=== PATIENT | male | born 1940 | race Caucasian/White ===

== ENCOUNTER → 2020-09-15 | Outpatient (CLI) | payer MEDICARE ==
[~2020-09-15] MED LIST: OMNIPAQUE 350 MG/ML, 150 ML BOTTLE ONE
== END | disposition home or self-care (01) ==
LOC: CFH 09:26
PROVIDERS: ATTEND Internal Medicine Cardiovascular Disease
DX: I48.91 Unspecified atrial fibrillation (principal); J98.4 Other disorders of lung; Z20.828 Contact with and (suspected) exposure to other viral communicable diseases
CPT/HCPCS: 71046; 75572; 87635; Q9967

== ENCOUNTER 2020-09-21 06:08 | Observation (INO) | payer MEDICARE ==
[~2020-09-21] VITALS: Ht 177.8 cm; Wt 101.3 kg
[2020-09-21 06:41] VITALS: BP 147/86
[2020-09-21] MEDS ORDERED: SODIUM CHLORIDE 0.9% 1,000 ML IV SCH (07:00)
[2020-09-21] MEDS ORDERED: SODIUM CHLORIDE 0.9% 1,000 ML IV ONE (07:00)
[2020-09-21] MEDS ORDERED: ALLO300T PO (07:05)
[2020-09-21] MEDS ORDERED: CHOL200052 PO (07:05)
[2020-09-21] MEDS ORDERED: MAGN250T8 PO (07:05)
[2020-09-21] MEDS ORDERED: GABA600T7 PO (07:05)
[2020-09-21] MEDS ORDERED: TAMS-11 PO (07:05)
[2020-09-21] MEDS ORDERED: INDO50CA15 PO (07:05)
[2020-09-21] MEDS ORDERED: HYDR30CR TP (07:05)
[2020-09-21] MEDS ORDERED: TRAM100T33 PO (07:05)
[2020-09-21] MEDS ORDERED: CYAN-10 PO (07:05)
[2020-09-21] MEDS ORDERED: LISI5TAB7 PO (07:05)
[2020-09-21] MEDS ORDERED: LEVO50TA5 PO (07:05)
[2020-09-21] MEDS ORDERED: ATOR40TA PO (07:05)
[2020-09-21] MEDS ORDERED: DRON400T PO (07:05)
[2020-09-21] MEDS ORDERED: FINA5TAB4 PO (07:05)
[2020-09-21] MEDS ORDERED: WARF-36 PO (07:05)
[2020-09-21 07:12] LABS: INTERNATIONAL NORMALIZED RATIO 1.61 (0.93-1.1)
[2020-09-21 07:55] LABS: ANION GAP 7 mmol/L (5-15); CALCIUM 8.8 mg/dL (8.5-10.1); CHLORIDE 112 mmol/L (98-107); CREATININE 1.16 mg/dL (0.7-1.3)
[2020-09-21 08:04] LABS: BASOPHILS % (AUTO) 1 % (0-1); EOSINOPHILS % (AUTO) 3 % (1-7); LYMPHOCYTES % (AUTO) 24 % (22-44); MEAN CORPUSCULAR HGB CONC 33.6 g/dL (33.2-36.2); MEAN PLATELET VOLUME 8.7 fL (7.4-10.4); MONOCYTES % (AUTO) 11 % (2-9); NEUTROPHILS % (AUTO) 62 % (42-75); PLATELET COUNT 225 x10^3/uL (130-400); RED BLOOD COUNT 4.33 x10^6/uL (4.38-5.82); RED CELL DISTRIBUTION WIDTH 13.9 % (9.4-14.8)
[2020-09-21 08:10] LABS: MD NO
[2020-09-21] MEDS ORDERED: FENTANYL PF 100 MCG/2ML ONE ×2 (08:13→12:42)
[2020-09-21] MEDS ORDERED: LIDOCAINE 2%, 20ML ONE (08:19)
[2020-09-21] MEDS ORDERED: PHENYLEPHRINE 10 MG/ML ONE (08:29)
[2020-09-21] MEDS ORDERED: DEXAMETHASONE 4 MG/ML, 5ML ONE (08:29)
[2020-09-21] MEDS ORDERED: hydrALAzine 20 MG/ML, 1ML IV PRN (08:30)
[2020-09-21] MEDS ORDERED: EPHEDRINE 50 MG/ML, 1ML IVPush PRN (08:30)
[2020-09-21] MEDS ORDERED: ONDANSETRON 2MG/ML, 2ML IVPush PRN (08:30)
[2020-09-21] MEDS ORDERED: LABETALOL 5MG/ML, 20ML IV PRN (08:30)
[2020-09-21] MEDS ORDERED: OXYcodone 5 MG/5 ML ORAL.SOL UDC PO PRN (08:30)
[2020-09-21] MEDS ORDERED: HYDROmorphone 1 MG/ML, 1ML INJ IVPush PRN (08:30)
[2020-09-21] MEDS ORDERED: PROMETHAZINE 25 MG/ML, 1ML IVPush PRN (08:30)
[2020-09-21] MEDS ORDERED: ACETAMINOPHEN 325 MG TABLET PO PRN ×2 (08:30→12:00)
[2020-09-21] MEDS ORDERED: FENTANYL PF 100 MCG/2ML IV PRN (08:30)
[2020-09-21] MEDS ORDERED: SUGAMMADEX 200 MG/2 ML IVPush ONE (09:04)
[2020-09-21] MEDS ORDERED: ONDANSETRON 2MG/ML, 2ML ONE (09:04)
[2020-09-21] MEDS ORDERED: SUCCINYLCHOLINE 20 MG/ML, 10ML ONE (09:04)
[2020-09-21] MEDS ORDERED: PROPOFOL 10 MG/ML, 20ML ONE (09:04)
[2020-09-21] MEDS ORDERED: ROCURONIUM 10MG/ML,5ML ONE ×2 (09:04→09:18)
[2020-09-21] MEDS ORDERED: LIDOCAINE-MPF 2% ,5ML ONE (09:04)
[2020-09-21] MEDS ORDERED: HEPARIN 1,000 UNITS/ML, 10ML ONE ×2 (09:18)
[2020-09-21 14:42] VITALS: BP 152/87
[2020-09-21] MEDS ORDERED: WARFARIN 7.5 MG TABLET PO-COUM ONE (18:00)
[2020-09-21 19:08] VITALS: BP 95/49
[2020-09-21] MEDS ORDERED: MELATONIN 5 MG TABLET PO PRN (20:30)
[2020-09-21] MEDS: COLCHICINE 0.6 MG CAPSULE PO SCH (20:42)
[2020-09-21] MEDS: INDOMETHACIN 50 MG CAPSULE PO SCH (20:42)
[2020-09-21] MEDS ORDERED: DRONEDARONE 400MG TABLET PO SCH (21:00)
[2020-09-21] MEDS: HYDROCORT TP SCH (21:00)
[2020-09-21] MEDS: PRAMOXINE TP SCH (21:00)
[2020-09-21] MEDS ORDERED: ATORVASTATIN 10 MG TABLET PO SCH (21:00)
[2020-09-22 01:44] VITALS: BP 119/73
[2020-09-22] MEDS ORDERED: LEVOTHYROXINE 50 MCG TABLET PO SCH (06:00)
[2020-09-22 07:06] LABS: INTERNATIONAL NORMALIZED RATIO 1.73 (0.93-1.1); PROTHROMBIN TIME 18.2 Seconds (9.6-11.5)
[2020-09-22 07:35] VITALS: BP 122/72
[2020-09-22] MEDS ORDERED: GABAPENTIN 300 MG CAPSULE PO SCH (09:00)
[2020-09-22] MEDS ORDERED: MAGNESIUM OXIDE 400 MG TABLET PO SCH (09:00)
[2020-09-22] MEDS: HYDROCORT TP SCH (09:00)
[2020-09-22] MEDS ORDERED: WARFARIN 5 MG TABLET PO-COUM SCH (09:00)
[2020-09-22] MEDS: PRAMOXINE TP SCH (09:00)
[2020-09-22] MEDS ORDERED: CHOLECALCIFEROL 1,000 UNIT TABLET PO SCH (09:00)
[2020-09-22] MEDS ORDERED: TAMSULOSIN 0.4 MG CAP.ER.24H PO SCH (09:00)
[2020-09-22] MEDS ORDERED: FINASTERIDE 5 MG TABLET PO SCH (09:00)
[2020-09-22] MEDS ORDERED: LISINOPRIL 5 MG TABLET PO SCH (09:00)
[2020-09-22] MEDS ORDERED: ALLOPURINOL 300 MG TABLET PO SCH (09:00)
[2020-09-22] MEDS ORDERED: COLC0.6C3 PO (09:07)
[2020-09-22] MEDS ORDERED: FLEC50TA25 PO (09:07)
[2020-09-22] MEDS: COLCHICINE 0.6 MG CAPSULE PO SCH (09:22)
[2020-09-22] MEDS: INDOMETHACIN 50 MG CAPSULE PO SCH (09:25)
== END 2020-09-22 10:30 | disposition home or self-care (01) ==
LOC: CACL 06:08 → ORIP 11:36 → 5SO 13:00 → DCLOUNGE 09-22 10:20
PROVIDERS: ADMIT Internal Medicine Cardiovascular Disease; ATTEND Internal Medicine Cardiovascular Disease
DX: I48.91 Unspecified atrial fibrillation (principal); I48.92 Unspecified atrial flutter; Q21.1 Atrial septal defect; I10 Essential (primary) hypertension; E78.5 Hyperlipidemia, unspecified; F10.10 Alcohol abuse, uncomplicated; Z86.73 Personal history of transient ischemic attack (TIA), and cerebral infarction without residual deficits; Z79.899 Other long term (current) drug therapy
CPT/HCPCS: 36415; 80048; 85025; 85347; 85610; 85730; 93306; 93312; 93321; 93325; 93613; 93655; 93656; 93662; C1730; C1732; C1759; C1766; C1769; C1893; C1894; G0378; J0330; J1100; J1644; J2370; J2405; J2704; J3490; J3010